=== PATIENT | male | born 2000 | race Hispanic/Latino ===

== ENCOUNTER 2021-06-17 15:17 | Emergency (ER) | payer OTHER, SELFPAY ==
--- NOTE | ~2021-06-17 | XR_ITS ---
EXAMINATION: XR knee RT 3V DATE: 06/17/2021 16:27 INDICATION: Right knee pain TECHNIQUE: Three views of the right knee were obtained. COMPARISON: None. FINDINGS: Alignment is normal. No fracture or osteochondral lesion. Joint spaces are normal with no e rosions. No joint effusion/synovitis. Soft tissues are unremarkable. IMPRESSION: 1. No acute osseous abnormality. Reviewed, dictated and finalized at location A.
[2021-06-17 16:02] VITALS: BP 122/70; PULSE 76; RESP 16; TEMP 36.8; O2SAT 100
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
[2021-06-17 17:53] VITALS: BP 124/68; PULSE 76; RESP 16; O2SAT 100
== END 2021-06-17 17:15 | disposition home or self-care (01) ==
LOC: ANHED 17:25
PROVIDERS: Emergency Provider Nurse Practitioner
DX: M25.561 Pain in right knee (principal); V49.50XA Passenger injured in collision with unspecified motor vehicles in traffic accident, initial encounter
CPT/HCPCS: 73562; 99283